=== PATIENT | female | born 1955 | race Caucasian/White ===

== ENCOUNTER 2022-12-31 15:52 | Inpatient (IN) | payer OTHER ==
[2022-12-31] VITALS (8 sets, daily range): BP systolic 94–126; BP diastolic 55–81
[~2022-12-31] VITALS: Ht 162.6 cm; Wt 17.7 kg
[2022-12-31 16:25] LABS: BASO # 0.1 10*3/uL (0.0-0.1); BASO % 0.3 % (0.0-1.0); EOS % 0.1 % (1.0-4.0); LYMPH # 1.2 10*3/uL (1.3-4.4); LYMPH % 7.1 % (27.0-41.0); MEAN CELL VOLUME 88.2 fl (81.0-99.0); MEAN CORPUSCULAR HGB 30.8 pg (27.0-31.0); MEAN CORPUSCULAR HGB CONC 34.9 g/dl (33.0-37.0); MEAN PLATELET VOLUME 8.2 fl (9.6-12.3); MONO # 1.2 10*3/uL (0.1-1.0); MONO % 7.1 % (3.0-9.0); NEUT # 14.2 10*3/uL (2.3-7.9); NEUT % 84.7 % (47.0-73.0); PLATELET COUNT AUTOMATED 454 10*3/uL (130-400); RED BLOOD COUNT 5.33 10*6/uL (4.10-5.10); WHITE BLOOD COUNT 16.7 10*3/uL (4.8-10.8)
[2022-12-31 16:37] LABS: ACT PARTIAL THROMBO TIME 27.8 SECONDS (20.0-32.1); INTERNATIONAL NORM RATIO 1.1 (2.0-3.5)
[2022-12-31] MEDS ORDERED: PAXIL10 MG PO (16:47)
[2022-12-31] MEDS ORDERED: SYMB160 INH (16:47)
[2022-12-31 16:55] LABS: ALKALINE PHOSPHATASE 70 U/L (46-116); BUN 8 mg/dl (9-23); CHLORIDE 82 mmol/L (98-107); LIPASE 32 U/L (12-53); POTASSIUM 3.2 mmol/L (3.4-5.1); SGPT/ALT 14 U/L (10-49); TOTAL PROTEIN 6.3 gm/dL (6.0-8.0)
[2022-12-31 17:15] LABS: BILIRUBIN Negative (Negative); BLOOD Negative (Negative); CLARITY Clear (Clear); COLOR Dark Yellow (Yellow); GLUCOSE Negative (Negative); KETONE Trace (Negative); LEUKO ESTERASE Negative (Negative); NITRITE Negative (Negative)
[2022-12-31 17:32] LABS: RBC 0-2 rbc/hpf (0-2)
[2022-12-31 17:40] LABS: URINE AMPHETAMINES Negative (1000ng/ml); URINE BARBITURATES Negative (200ng/ml); URINE BENZODIAZEPINES Negative (200ng/ml); URINE CANNABINOIDS (THC) Negative (50ng/ml); URINE COCAINE Negative (300ng/ml); URINE METHADONE Negative (300ng/ml); URINE OPIATES Negative (300ng/ml); URINE PHENCYCLIDINE Negative (25ng/ml)
[2023-01-01 02:12] VITALS: BP 120/81
[2023-01-01 02:30] VITALS: BP 120/68
[2023-01-01] MEDS ORDERED: PROVENTIL HFA6.7 GM INH (03:14)
[2023-01-01 06:34] LABS: ALKALINE PHOSPHATASE 55 U/L (46-116); CHLORIDE 95 mmol/L (98-107); CHOLESTEROL 94 mg/dL (<200); FREE T4 0.88 ng/dl (0.89-1.76); LDL CHOLESTEROL 45 mg/dL (9-159); POTASSIUM 2.8 mmol/L (3.4-5.1); SGPT/ALT 12 U/L (10-49); TOTAL PROTEIN 5.2 gm/dL (6.0-8.0); TRIGLYCERIDES 71 mg/dl (<150); VITAMIN D, 25-HYDROXY 49.1 ng/mL (30-100)
[2023-01-01 06:35] LABS: BUN < 5 mg/dl (9-23)
[2023-01-01 07:07] LABS: BASO % 0.1 % (0.0-1.0); EOS # 0.1 10*3/uL (0.0-0.4); EOS % 0.4 % (1.0-4.0); HEMATOCRIT 43.1 % (37.0-47.0); LYMPH % 7.2 % (27.0-41.0); MEAN CORPUSCULAR HGB 30.7 pg (27.0-31.0); MEAN CORPUSCULAR HGB CONC 32.9 g/dl (33.0-37.0); MEAN PLATELET VOLUME 8.8 fl (9.6-12.3); NEUT # 11.4 10*3/uL (2.3-7.9); NEUT % 84.7 % (47.0-73.0); PLATELET COUNT AUTOMATED 391 10*3/uL (130-400); RED BLOOD COUNT 4.63 10*6/uL (4.10-5.10); RED CELL DISTRI WIDTH 12.5 % (0-14.5); WHITE BLOOD COUNT 13.5 10*3/uL (4.8-10.8)
[2023-01-01 07:08] LABS: MEAN CELL VOLUME 93.1 fl (81.0-99.0)
[2023-01-01 08:00] VITALS: BP 108/71
[2023-01-01 12:00] VITALS: BP 100/56
[2023-01-01 13:54] LABS: CHLORIDE 99 mmol/L (98-107); POTASSIUM 3.7 mmol/L (3.4-5.1)
[2023-01-01 13:55] LABS: BUN < 5 mg/dl (9-23)
[2023-01-01 16:00] VITALS: BP 104/62
[2023-01-01 20:00] VITALS: BP 108/55
[2023-01-01 21:49] LABS: CHLORIDE 105 mmol/L (98-107)
[2023-01-01 21:55] LABS: BUN < 5 mg/dl (9-23); POTASSIUM 5.9 mmol/L (3.4-5.1)
[2023-01-02] VITALS (11 sets, daily range): BP systolic 111–158; BP diastolic 66–100
[2023-01-02 02:05] LABS: CHLORIDE 107 mmol/L (98-107)
[2023-01-02 02:06] LABS: BUN < 5 mg/dl (9-23); POTASSIUM 4.9 mmol/L (3.4-5.1)
[2023-01-02 06:09] LABS: CHLORIDE 110 mmol/L (98-107); POTASSIUM 4.7 mmol/L (3.4-5.1)
[2023-01-02 06:12] LABS: BUN < 5 mg/dl (9-23)
[2023-01-02 06:39] LABS: BASO # 0.1 10*3/uL (0.0-0.1); BASO % 0.4 % (0.0-1.0); EOS # 0.1 10*3/uL (0.0-0.4); EOS % 0.5 % (1.0-4.0); LYMPH % 8.2 % (27.0-41.0); MEAN CELL VOLUME 94.4 fl (81.0-99.0); MEAN CORPUSCULAR HGB 30.3 pg (27.0-31.0); MEAN CORPUSCULAR HGB CONC 32.1 g/dl (33.0-37.0); MEAN PLATELET VOLUME 8.6 fl (9.6-12.3); MONO # 0.9 10*3/uL (0.1-1.0); MONO % 7.2 % (3.0-9.0); NEUT # 9.9 10*3/uL (2.3-7.9); NEUT % 83.1 % (47.0-73.0); PLATELET COUNT AUTOMATED 415 10*3/uL (130-400); RED BLOOD COUNT 4.45 10*6/uL (4.10-5.10); RED CELL DISTRI WIDTH 12.6 % (0-14.5); WHITE BLOOD COUNT 11.9 10*3/uL (4.8-10.8)
[2023-01-02 15:47] LABS: CHLORIDE 106 mmol/L (98-107); POTASSIUM 4.2 mmol/L (3.4-5.1)
[2023-01-02 15:50] LABS: BUN < 5 mg/dl (9-23)
[2023-01-02 22:03] LABS: CHLORIDE 104 mmol/L (98-107); POTASSIUM 3.9 mmol/L (3.4-5.1)
[2023-01-02 22:06] LABS: BUN < 5 mg/dl (9-23)
[2023-01-03] VITALS: BP 137/83
[2023-01-03 04:00] VITALS: BP 151/88
[2023-01-03 05:47] LABS: CHLORIDE 101 mmol/L (98-107); POTASSIUM 3.9 mmol/L (3.4-5.1)
[2023-01-03 05:51] LABS: BUN < 5 mg/dl (9-23)
[2023-01-03 06:22] LABS: BASO # 0.1 10*3/uL (0.0-0.1); BASO % 0.9 % (0.0-1.0); EOS # 0.1 10*3/uL (0.0-0.4); EOS % 1.2 % (1.0-4.0); HEMATOCRIT 43.4 % (37.0-47.0); LYMPH # 1.2 10*3/uL (1.3-4.4); LYMPH % 11.4 % (27.0-41.0); MEAN CELL VOLUME 94.8 fl (81.0-99.0); MEAN CORPUSCULAR HGB 30.1 pg (27.0-31.0); MEAN CORPUSCULAR HGB CONC 31.8 g/dl (33.0-37.0); MEAN PLATELET VOLUME 8.6 fl (9.6-12.3); MONO # 0.7 10*3/uL (0.1-1.0); MONO % 7.3 % (3.0-9.0); NEUT % 78.7 % (47.0-73.0); PLATELET COUNT AUTOMATED 420 10*3/uL (130-400); RED BLOOD COUNT 4.58 10*6/uL (4.10-5.10); RED CELL DISTRI WIDTH 12.8 % (0-14.5); WHITE BLOOD COUNT 10.1 10*3/uL (4.8-10.8)
[2023-01-03 08:00] VITALS: BP 129/86
[2023-01-03 12:00] VITALS: BP 144/81
[2023-01-03 14:06] LABS: CHLORIDE 101 mmol/L (98-107); POTASSIUM 4.3 mmol/L (3.4-5.1)
[2023-01-03 14:10] LABS: BUN < 5 mg/dl (9-23)
[2023-01-03 16:00] VITALS: BP 124/82
[2023-01-03 20:00] VITALS: BP 146/87
[2023-01-03 21:51] LABS: CHLORIDE 102 mmol/L (98-107)
[2023-01-03 21:52] LABS: BUN < 5 mg/dl (9-23)
[2023-01-04] VITALS (7 sets, daily range): BP systolic 139–165; BP diastolic 82–97
[2023-01-04 06:16] LABS: BASO # 0.1 10*3/uL (0.0-0.1); BASO % 0.8 % (0.0-1.0); EOS # 0.1 10*3/uL (0.0-0.4); EOS % 0.9 % (1.0-4.0); HEMATOCRIT 45.7 % (37.0-47.0); LYMPH % 9.4 % (27.0-41.0); MEAN CELL VOLUME 92.7 fl (81.0-99.0); MEAN CORPUSCULAR HGB CONC 32.4 g/dl (33.0-37.0); MEAN PLATELET VOLUME 8.2 fl (9.6-12.3); MONO # 0.7 10*3/uL (0.1-1.0); MONO % 6.5 % (3.0-9.0); NEUT # 8.7 10*3/uL (2.3-7.9); PLATELET COUNT AUTOMATED 420 10*3/uL (130-400); RED BLOOD COUNT 4.93 10*6/uL (4.10-5.10); RED CELL DISTRI WIDTH 12.5 % (0-14.5); WHITE BLOOD COUNT 10.6 10*3/uL (4.8-10.8)
[2023-01-04 06:41] LABS: CHLORIDE 104 mmol/L (98-107); POTASSIUM 3.6 mmol/L (3.4-5.1)
[2023-01-04 06:46] LABS: BUN < 5 mg/dl (9-23)
[2023-01-04 14:07] LABS: CHLORIDE 103 mmol/L (98-107); POTASSIUM 3.5 mmol/L (3.4-5.1)
[2023-01-04 14:09] LABS: BUN < 5 mg/dl (9-23)
[2023-01-04 22:36] LABS: CHLORIDE 105 mmol/L (98-107); POTASSIUM 4.3 mmol/L (3.4-5.1)
[2023-01-04 22:44] LABS: BUN < 5 mg/dl (9-23)
[2023-01-05] VITALS: BP 131/70
[2023-01-05 04:00] VITALS: BP 132/81
[2023-01-05 05:29] LABS: CHLORIDE 104 mmol/L (98-107); POTASSIUM 4.4 mmol/L (3.4-5.1)
[2023-01-05 05:39] LABS: BUN < 5 mg/dl (9-23)
[2023-01-05 06:17] LABS: BASO # 0.1 10*3/uL (0.0-0.1); BASO % 0.7 % (0.0-1.0); EOS # 0.1 10*3/uL (0.0-0.4); EOS % 0.7 % (1.0-4.0); HEMATOCRIT 47.9 % (37.0-47.0); LYMPH % 8.9 % (27.0-41.0); MEAN CELL VOLUME 95.6 fl (81.0-99.0); MEAN CORPUSCULAR HGB 30.5 pg (27.0-31.0); MEAN CORPUSCULAR HGB CONC 31.9 g/dl (33.0-37.0); MEAN PLATELET VOLUME 8.6 fl (9.6-12.3); MONO # 0.9 10*3/uL (0.1-1.0); MONO % 7.5 % (3.0-9.0); NEUT # 9.4 10*3/uL (2.3-7.9); NEUT % 81.6 % (47.0-73.0); PLATELET COUNT AUTOMATED 425 10*3/uL (130-400); RED BLOOD COUNT 5.01 10*6/uL (4.10-5.10); RED CELL DISTRI WIDTH 12.8 % (0-14.5); WHITE BLOOD COUNT 11.5 10*3/uL (4.8-10.8)
[2023-01-05 07:50] VITALS: BP 143/72
[2023-01-05 12:00] VITALS: BP 119/67
[2023-01-05 14:17] LABS: CHLORIDE 104 mmol/L (98-107); POTASSIUM 3.8 mmol/L (3.4-5.1)
[2023-01-05 14:29] LABS: BUN < 5 mg/dl (9-23)
[2023-01-05 16:00] VITALS: BP 108/56
[2023-01-05 20:00] VITALS: BP 117/64
[2023-01-05 22:34] LABS: CHLORIDE 110 mmol/L (98-107)
[2023-01-05 22:35] LABS: BUN < 5 mg/dl (9-23)
[2023-01-06] VITALS: BP 112/62
[2023-01-06 04:00] VITALS: BP 131/69
[2023-01-06 06:52] LABS: BUN 5 mg/dl (9-23); CHLORIDE 109 mmol/L (98-107); POTASSIUM 5.3 mmol/L (3.4-5.1)
[2023-01-06 08:42] LABS: BASO # 0.1 10*3/uL (0.0-0.1); BASO % 0.8 % (0.0-1.0); EOS # 0.1 10*3/uL (0.0-0.4); EOS % 1.2 % (1.0-4.0); HEMATOCRIT 45.1 % (37.0-47.0); LYMPH # 1.2 10*3/uL (1.3-4.4); LYMPH % 12.1 % (27.0-41.0); MEAN CELL VOLUME 97.2 fl (81.0-99.0); MEAN CORPUSCULAR HGB 30.2 pg (27.0-31.0); MEAN PLATELET VOLUME 8.7 fl (9.6-12.3); MONO # 0.7 10*3/uL (0.1-1.0); MONO % 7.3 % (3.0-9.0); NEUT # 7.8 10*3/uL (2.3-7.9); NEUT % 78.1 % (47.0-73.0); PLATELET COUNT AUTOMATED 428 10*3/uL (130-400); RED BLOOD COUNT 4.64 10*6/uL (4.10-5.10); RED CELL DISTRI WIDTH 12.8 % (0-14.5); WHITE BLOOD COUNT 9.9 10*3/uL (4.8-10.8)
[2023-01-06 12:00] VITALS: BP 121/65
[2023-01-06 14:39] LABS: CHLORIDE 110 mmol/L (98-107)
[2023-01-06 14:40] LABS: BUN < 5 mg/dl (9-23); POTASSIUM 3.6 mmol/L (3.4-5.1)
[2023-01-06 16:00] VITALS: BP 129/71
[2023-01-06 20:00] VITALS: BP 128/67
[2023-01-06 22:25] LABS: CHLORIDE 106 mmol/L (98-107)
[2023-01-06 22:26] LABS: BUN < 5 mg/dl (9-23)
[2023-01-07] VITALS: BP 135/66
[2023-01-07 04:00] VITALS: BP 150/80
[2023-01-07 06:19] LABS: BASO # 0.1 10*3/uL (0.0-0.1); BASO % 0.8 % (0.0-1.0); EOS # 0.1 10*3/uL (0.0-0.4); LYMPH # 1.4 10*3/uL (1.3-4.4); LYMPH % 12.2 % (27.0-41.0); MEAN CELL VOLUME 96.8 fl (81.0-99.0); MEAN CORPUSCULAR HGB CONC 30.9 g/dl (33.0-37.0); MEAN PLATELET VOLUME 8.9 fl (9.6-12.3); MONO # 0.8 10*3/uL (0.1-1.0); MONO % 6.7 % (3.0-9.0); NEUT # 9.2 10*3/uL (2.3-7.9); PLATELET COUNT AUTOMATED 381 10*3/uL (130-400); RED BLOOD COUNT 4.44 10*6/uL (4.10-5.10); RED CELL DISTRI WIDTH 12.9 % (0-14.5); WHITE BLOOD COUNT 11.7 10*3/uL (4.8-10.8)
[2023-01-07 07:01] LABS: ALKALINE PHOSPHATASE 51 U/L (46-116); CHLORIDE 108 mmol/L (98-107); SGPT/ALT 18 U/L (10-49); TOTAL PROTEIN 5.6 gm/dL (6.0-8.0)
[2023-01-07 07:10] LABS: BUN < 5 mg/dl (9-23)
[2023-01-07 07:12] LABS: POTASSIUM 6.2 mmol/L (3.4-5.1)
[2023-01-07 08:00] VITALS: BP 152/92
[2023-01-07 12:00] VITALS: BP 130/70
[2023-01-07 13:58] LABS: CHLORIDE 104 mmol/L (98-107)
[2023-01-07 14:35] LABS: BUN < 5 mg/dl (9-23); POTASSIUM 3.6 mmol/L (3.4-5.1)
[2023-01-07 16:00] VITALS: BP 149/81
[2023-01-07 20:00] VITALS: BP 155/69
[2023-01-07 22:16] LABS: CHLORIDE 101 mmol/L (98-107); POTASSIUM 3.5 mmol/L (3.4-5.1)
[2023-01-07 22:17] LABS: BUN < 5 mg/dl (9-23)
[2023-01-08] VITALS: BP 162/80
[2023-01-08 04:00] VITALS: BP 133/60
[2023-01-08 08:00] VITALS: BP 143/73
[2023-01-08 11:55] LABS: BASO # 0.1 10*3/uL (0.0-0.1); BASO % 0.7 % (0.0-1.0); EOS # 0.1 10*3/uL (0.0-0.4); EOS % 1.3 % (1.0-4.0); HEMATOCRIT 42.7 % (37.0-47.0); LYMPH # 1.3 10*3/uL (1.3-4.4); LYMPH % 12.9 % (27.0-41.0); MEAN CORPUSCULAR HGB 30.3 pg (27.0-31.0); MEAN CORPUSCULAR HGB CONC 32.8 g/dl (33.0-37.0); MONO # 0.7 10*3/uL (0.1-1.0); MONO % 6.7 % (3.0-9.0); NEUT # 7.8 10*3/uL (2.3-7.9); PLATELET COUNT AUTOMATED 364 10*3/uL (130-400); RED BLOOD COUNT 4.62 10*6/uL (4.10-5.10); RED CELL DISTRI WIDTH 12.8 % (0-14.5)
[2023-01-08 12:00] VITALS: BP 149/73
[2023-01-08 12:00] LABS: BUN < 5 mg/dl (9-23); CHLORIDE 99 mmol/L (98-107); POTASSIUM 3.2 mmol/L (3.4-5.1)
[2023-01-08 12:15] LABS: MEAN CELL VOLUME 92.4 fl (81.0-99.0)
[2023-01-08 15:53] VITALS: BP 122/69
[2023-01-08 20:00] VITALS: BP 125/80
[2023-01-08 22:09] LABS: BUN < 5 mg/dl (9-23); CHLORIDE 102 mmol/L (98-107); POTASSIUM 3.7 mmol/L (3.4-5.1)
[2023-01-09] VITALS: BP 135/75
[2023-01-09 08:00] VITALS: BP 141/94
[2023-01-09 12:00] VITALS: BP 148/83
[2023-01-09 16:00] VITALS: BP 147/82
[2023-01-09 16:18] LABS: ALKALINE PHOSPHATASE 59 U/L (46-116); CHLORIDE 99 mmol/L (98-107); POTASSIUM 3.3 mmol/L (3.4-5.1); SGPT/ALT 25 U/L (10-49); TOTAL PROTEIN 5.6 gm/dL (6.0-8.0)
[2023-01-09 16:27] LABS: BUN < 5 mg/dl (9-23)
[2023-01-09 20:00] VITALS: BP 144/76
[2023-01-10] VITALS: BP 143/92
[2023-01-10 06:10] LABS: ALKALINE PHOSPHATASE 60 U/L (46-116); CHLORIDE 102 mmol/L (98-107); POTASSIUM 2.5 mmol/L (3.4-5.1); SGPT/ALT 25 U/L (10-49); TOTAL PROTEIN 5.5 gm/dL (6.0-8.0)
[2023-01-10 06:19] LABS: BUN < 5 mg/dl (9-23)
[2023-01-10 06:43] LABS: BASO # 0.1 10*3/uL (0.0-0.1); BASO % 0.9 % (0.0-1.0); EOS # 0.2 10*3/uL (0.0-0.4); HEMATOCRIT 38.8 % (37.0-47.0); LYMPH # 1.1 10*3/uL (1.3-4.4); LYMPH % 11.8 % (27.0-41.0); MEAN CORPUSCULAR HGB 29.9 pg (27.0-31.0); MEAN CORPUSCULAR HGB CONC 33.2 g/dl (33.0-37.0); MEAN PLATELET VOLUME 9.5 fl (9.6-12.3); MONO # 0.7 10*3/uL (0.1-1.0); MONO % 7.6 % (3.0-9.0); NEUT # 7.2 10*3/uL (2.3-7.9); NEUT % 77.1 % (47.0-73.0); PLATELET COUNT AUTOMATED 421 10*3/uL (130-400); RED BLOOD COUNT 4.31 10*6/uL (4.10-5.10); RED CELL DISTRI WIDTH 12.6 % (0-14.5); WHITE BLOOD COUNT 9.3 10*3/uL (4.8-10.8)
[2023-01-10 08:00] VITALS: BP 150/80
[2023-01-10 12:00] VITALS: BP 150/84
[2023-01-10 16:00] VITALS: BP 150/82
[2023-01-10 16:36] VITALS: BP 150/82
[2023-01-10 16:58] LABS: CHLORIDE 103 mmol/L (98-107)
[2023-01-10 17:00] LABS: BUN < 5 mg/dl (9-23); POTASSIUM 4.1 mmol/L (3.4-5.1)
[2023-01-10 20:00] VITALS: BP 133/82
[2023-01-11 04:55] LABS: ALKALINE PHOSPHATASE 63 U/L (46-116); BUN 6 mg/dl (9-23); CHLORIDE 100 mmol/L (98-107); POTASSIUM 3.5 mmol/L (3.4-5.1); SGPT/ALT 22 U/L (10-49); TOTAL PROTEIN 5.6 gm/dL (6.0-8.0)
[2023-01-11 06:29] LABS: BASO # 0.1 10*3/uL (0.0-0.1); BASO % 0.9 % (0.0-1.0); EOS # 0.4 10*3/uL (0.0-0.4); EOS % 4.2 % (1.0-4.0); HEMATOCRIT 38.4 % (37.0-47.0); LYMPH # 1.1 10*3/uL (1.3-4.4); LYMPH % 11.3 % (27.0-41.0); MEAN CELL VOLUME 91.2 fl (81.0-99.0); MEAN CORPUSCULAR HGB 30.6 pg (27.0-31.0); MEAN CORPUSCULAR HGB CONC 33.6 g/dl (33.0-37.0); MEAN PLATELET VOLUME 9.5 fl (9.6-12.3); MONO # 0.8 10*3/uL (0.1-1.0); MONO % 7.4 % (3.0-9.0); NEUT # 7.7 10*3/uL (2.3-7.9); NEUT % 75.8 % (47.0-73.0); PLATELET COUNT AUTOMATED 422 10*3/uL (130-400); RED BLOOD COUNT 4.21 10*6/uL (4.10-5.10); RED CELL DISTRI WIDTH 12.8 % (0-14.5); WHITE BLOOD COUNT 10.1 10*3/uL (4.8-10.8)
[2023-01-11 08:00] VITALS: BP 128/73
[2023-01-11 16:00] VITALS: BP 121/68
[2023-01-11 20:00] VITALS: BP 122/51
[2023-01-12] VITALS: BP 132/71
[2023-01-12 06:23] LABS: BASO # 0.1 10*3/uL (0.0-0.1); BASO % 0.9 % (0.0-1.0); EOS # 0.5 10*3/uL (0.0-0.4); EOS % 3.7 % (1.0-4.0); LYMPH # 1.2 10*3/uL (1.3-4.4); LYMPH % 9.6 % (27.0-41.0); MEAN CELL VOLUME 90.1 fl (81.0-99.0); MEAN CORPUSCULAR HGB 29.8 pg (27.0-31.0); MEAN CORPUSCULAR HGB CONC 33.1 g/dl (33.0-37.0); MEAN PLATELET VOLUME 9.4 fl (9.6-12.3); MONO # 0.8 10*3/uL (0.1-1.0); NEUT # 9.5 10*3/uL (2.3-7.9); NEUT % 78.6 % (47.0-73.0); PLATELET COUNT AUTOMATED 475 10*3/uL (130-400); RED BLOOD COUNT 4.33 10*6/uL (4.10-5.10); RED CELL DISTRI WIDTH 12.8 % (0-14.5); WHITE BLOOD COUNT 12.1 10*3/uL (4.8-10.8)
[2023-01-12 07:00] LABS: ALKALINE PHOSPHATASE 62 U/L (46-116); CHLORIDE 101 mmol/L (98-107); POTASSIUM 3.2 mmol/L (3.4-5.1); SGPT/ALT 21 U/L (10-49); TOTAL PROTEIN 5.8 gm/dL (6.0-8.0)
[2023-01-12 07:26] LABS: BUN < 5 mg/dl (9-23)
[2023-01-12 08:00] VITALS: BP 150/73
[2023-01-12 12:00] VITALS: BP 149/71
[2023-01-12 16:00] VITALS: BP 149/83
[2023-01-12 20:00] VITALS: BP 150/82
[2023-01-13] VITALS: BP 140/60
[2023-01-13 07:48] LABS: BASO # 0.2 10*3/uL (0.0-0.1); BASO % 1.9 % (0.0-1.0); EOS # 0.7 10*3/uL (0.0-0.4); EOS % 7.7 % (1.0-4.0); LYMPH % 11.4 % (27.0-41.0); MEAN CELL VOLUME 88.3 fl (81.0-99.0); MEAN CORPUSCULAR HGB 29.8 pg (27.0-31.0); MEAN CORPUSCULAR HGB CONC 33.8 g/dl (33.0-37.0); MEAN PLATELET VOLUME 9.3 fl (9.6-12.3); MONO # 0.6 10*3/uL (0.1-1.0); MONO % 7.5 % (3.0-9.0); NEUT # 6.1 10*3/uL (2.3-7.9); NEUT % 71.4 % (47.0-73.0); PLATELET COUNT AUTOMATED 571 10*3/uL (130-400); RED BLOOD COUNT 4.53 10*6/uL (4.10-5.10); RED CELL DISTRI WIDTH 12.8 % (0-14.5); WHITE BLOOD COUNT 8.5 10*3/uL (4.8-10.8)
[2023-01-13 07:52] LABS: BUN 6 mg/dl (9-23); CHLORIDE 100 mmol/L (98-107); POTASSIUM 2.5 mmol/L (3.4-5.1)
[2023-01-13 08:00] VITALS: BP 147/86
[2023-01-13 12:00] VITALS: BP 130/76
[2023-01-13 16:00] VITALS: BP 150/74
[2023-01-13 20:00] VITALS: BP 142/80
[2023-01-14] VITALS: BP 131/84
[2023-01-14 07:50] LABS: BASO # 0.2 10*3/uL (0.0-0.1); BASO % 1.6 % (0.0-1.0); EOS # 0.3 10*3/uL (0.0-0.4); HEMATOCRIT 41.5 % (37.0-47.0); LYMPH # 1.1 10*3/uL (1.3-4.4); LYMPH % 11.3 % (27.0-41.0); MEAN CELL VOLUME 88.7 fl (81.0-99.0); MEAN CORPUSCULAR HGB 29.9 pg (27.0-31.0); MEAN CORPUSCULAR HGB CONC 33.7 g/dl (33.0-37.0); MEAN PLATELET VOLUME 8.7 fl (9.6-12.3); MONO # 0.7 10*3/uL (0.1-1.0); MONO % 7.2 % (3.0-9.0); NEUT # 7.5 10*3/uL (2.3-7.9); NEUT % 76.5 % (47.0-73.0); PLATELET COUNT AUTOMATED 621 10*3/uL (130-400); RED BLOOD COUNT 4.68 10*6/uL (4.10-5.10); RED CELL DISTRI WIDTH 12.9 % (0-14.5); WHITE BLOOD COUNT 9.8 10*3/uL (4.8-10.8)
[2023-01-14 08:00] VITALS: BP 147/82
[2023-01-14 08:09] LABS: CHLORIDE 101 mmol/L (98-107); POTASSIUM 3.2 mmol/L (3.4-5.1)
[2023-01-14 08:17] LABS: BUN < 5 mg/dl (9-23)
[2023-01-14 12:00] VITALS: BP 120/80
[2023-01-14 16:00] VITALS: BP 150/90
[2023-01-14 20:00] VITALS: BP 149/93
[2023-01-14] MEDS ORDERED: PIPERACIL-TAZO4.5 GM IV (21:49)
[2023-01-15] VITALS: BP 153/77
[2023-01-15 06:20] LABS: BASO # 0.1 10*3/uL (0.0-0.1); BASO % 1.2 % (0.0-1.0); EOS # 0.3 10*3/uL (0.0-0.4); EOS % 3.3 % (1.0-4.0); HEMATOCRIT 40.6 % (37.0-47.0); LYMPH # 1.2 10*3/uL (1.3-4.4); LYMPH % 12.6 % (27.0-41.0); MEAN CELL VOLUME 89.4 fl (81.0-99.0); MEAN CORPUSCULAR HGB CONC 33.5 g/dl (33.0-37.0); MEAN PLATELET VOLUME 9.1 fl (9.6-12.3); MONO # 0.8 10*3/uL (0.1-1.0); MONO % 8.6 % (3.0-9.0); NEUT % 73.9 % (47.0-73.0); PLATELET COUNT AUTOMATED 660 10*3/uL (130-400); RED BLOOD COUNT 4.54 10*6/uL (4.10-5.10); WHITE BLOOD COUNT 9.4 10*3/uL (4.8-10.8)
[2023-01-15 07:17] LABS: ALKALINE PHOSPHATASE 66 U/L (46-116); CHLORIDE 104 mmol/L (98-107); POTASSIUM 3.6 mmol/L (3.4-5.1); SGPT/ALT 23 U/L (10-49); TOTAL PROTEIN 6.1 gm/dL (6.0-8.0)
[2023-01-15 07:25] LABS: BUN < 5 mg/dl (9-23)
[2023-01-15 08:00] VITALS: BP 155/82
[2023-01-15 12:00] VITALS: BP 153/85
[2023-01-15 16:00] VITALS: BP 152/85
[2023-01-15 20:00] VITALS: BP 137/92
[2023-01-16] VITALS (8 sets, daily range): BP systolic 69–155; BP diastolic 46–82
[2023-01-16 06:06] LABS: BASO # 0.1 10*3/uL (0.0-0.1); BASO % 1.3 % (0.0-1.0); EOS # 0.5 10*3/uL (0.0-0.4); EOS % 4.7 % (1.0-4.0); HEMATOCRIT 36.7 % (37.0-47.0); LYMPH # 1.3 10*3/uL (1.3-4.4); LYMPH % 13.1 % (27.0-41.0); MEAN CELL VOLUME 87.8 fl (81.0-99.0); MEAN CORPUSCULAR HGB 29.9 pg (27.0-31.0); MEAN CORPUSCULAR HGB CONC 34.1 g/dl (33.0-37.0); MONO # 0.8 10*3/uL (0.1-1.0); MONO % 8.2 % (3.0-9.0); NEUT % 72.3 % (47.0-73.0); PLATELET COUNT AUTOMATED 633 10*3/uL (130-400); RED BLOOD COUNT 4.18 10*6/uL (4.10-5.10); RED CELL DISTRI WIDTH 12.9 % (0-14.5); WHITE BLOOD COUNT 9.7 10*3/uL (4.8-10.8)
[2023-01-16 06:24] LABS: BUN 7 mg/dl (9-23); CHLORIDE 99 mmol/L (98-107); POTASSIUM 3.1 mmol/L (3.4-5.1)
[2023-01-17] VITALS: BP 153/86
[2023-01-17 08:00] VITALS: BP 132/80
[2023-01-17 12:00] VITALS: BP 146/98
[2023-01-17 16:00] VITALS: BP 131/75
[2023-01-17 20:00] VITALS: BP 148/81
[2023-01-18] VITALS: BP 142/85
[2023-01-18 07:24] LABS: BASO # 0.1 10*3/uL (0.0-0.1); BASO % 0.9 % (0.0-1.0); EOS # 0.3 10*3/uL (0.0-0.4); EOS % 2.5 % (1.0-4.0); HEMATOCRIT 36.5 % (37.0-47.0); LYMPH # 1.4 10*3/uL (1.3-4.4); LYMPH % 12.5 % (27.0-41.0); MEAN CELL VOLUME 87.5 fl (81.0-99.0); MEAN CORPUSCULAR HGB 29.7 pg (27.0-31.0); MONO # 0.8 10*3/uL (0.1-1.0); MONO % 6.7 % (3.0-9.0); NEUT # 8.8 10*3/uL (2.3-7.9); PLATELET COUNT AUTOMATED 625 10*3/uL (130-400); RED BLOOD COUNT 4.17 10*6/uL (4.10-5.10); RED CELL DISTRI WIDTH 12.7 % (0-14.5); WHITE BLOOD COUNT 11.4 10*3/uL (4.8-10.8)
[2023-01-18 07:37] LABS: BUN 6 mg/dl (9-23); CHLORIDE 100 mmol/L (98-107); POTASSIUM 2.8 mmol/L (3.4-5.1)
[2023-01-18 08:00] VITALS: BP 120/67
[2023-01-18 12:00] VITALS: BP 119/50
[2023-01-18 16:00] VITALS: BP 129/68
[2023-01-18 20:00] VITALS: BP 147/80
[2023-01-19] VITALS: BP 151/84
[2023-01-19 07:22] LABS: BASO # 0.1 10*3/uL (0.0-0.1); EOS # 0.2 10*3/uL (0.0-0.4); EOS % 1.5 % (1.0-4.0); LYMPH # 1.3 10*3/uL (1.3-4.4); LYMPH % 13.1 % (27.0-41.0); MEAN CELL VOLUME 87.6 fl (81.0-99.0); MEAN CORPUSCULAR HGB 29.4 pg (27.0-31.0); MEAN CORPUSCULAR HGB CONC 33.6 g/dl (33.0-37.0); MONO # 0.7 10*3/uL (0.1-1.0); MONO % 7.2 % (3.0-9.0); NEUT # 7.6 10*3/uL (2.3-7.9); NEUT % 76.7 % (47.0-73.0); PLATELET COUNT AUTOMATED 611 10*3/uL (130-400); RED BLOOD COUNT 4.11 10*6/uL (4.10-5.10); RED CELL DISTRI WIDTH 12.8 % (0-14.5); WHITE BLOOD COUNT 9.9 10*3/uL (4.8-10.8)
[2023-01-19 07:50] LABS: BUN 5 mg/dl (9-23); CHLORIDE 101 mmol/L (98-107); POTASSIUM 3.4 mmol/L (3.4-5.1)
[2023-01-19 08:00] VITALS: BP 135/76
[2023-01-19 12:00] VITALS: BP 134/79
[2023-01-19 16:00] VITALS: BP 143/81
[2023-01-19 20:00] VITALS: BP 145/73
[2023-01-20] VITALS: BP 126/80
[2023-01-20 06:02] LABS: BASO # 0.1 10*3/uL (0.0-0.1); BASO % 0.7 % (0.0-1.0); EOS # 0.1 10*3/uL (0.0-0.4); EOS % 1.2 % (1.0-4.0); HEMATOCRIT 34.7 % (37.0-47.0); LYMPH # 1.4 10*3/uL (1.3-4.4); LYMPH % 12.7 % (27.0-41.0); MEAN CELL VOLUME 86.8 fl (81.0-99.0); MEAN CORPUSCULAR HGB 29.3 pg (27.0-31.0); MEAN CORPUSCULAR HGB CONC 33.7 g/dl (33.0-37.0); MEAN PLATELET VOLUME 8.9 fl (9.6-12.3); MONO # 0.8 10*3/uL (0.1-1.0); MONO % 6.8 % (3.0-9.0); NEUT # 8.8 10*3/uL (2.3-7.9); NEUT % 78.2 % (47.0-73.0); PLATELET COUNT AUTOMATED 575 10*3/uL (130-400); RED CELL DISTRI WIDTH 12.7 % (0-14.5); WHITE BLOOD COUNT 11.2 10*3/uL (4.8-10.8)
[2023-01-20 06:07] LABS: ALKALINE PHOSPHATASE 61 U/L (46-116); BUN 6 mg/dl (9-23); CHLORIDE 97 mmol/L (98-107); POTASSIUM 3.4 mmol/L (3.4-5.1); SGPT/ALT 22 U/L (10-49)
[2023-01-20 08:00] VITALS: BP 105/62
[2023-01-20 12:00] VITALS: BP 131/86
[2023-01-20 16:00] VITALS: BP 151/92
[2023-01-20 20:00] VITALS: BP 145/80
[2023-01-21] VITALS: BP 145/82
[2023-01-21 07:10] LABS: BASO # 0.1 10*3/uL (0.0-0.1); BASO % 0.7 % (0.0-1.0); EOS # 0.1 10*3/uL (0.0-0.4); EOS % 0.7 % (1.0-4.0); HEMATOCRIT 35.4 % (37.0-47.0); LYMPH # 1.6 10*3/uL (1.3-4.4); LYMPH % 12.7 % (27.0-41.0); MEAN CELL VOLUME 87.6 fl (81.0-99.0); MEAN CORPUSCULAR HGB CONC 33.1 g/dl (33.0-37.0); MEAN PLATELET VOLUME 8.7 fl (9.6-12.3); MONO # 0.9 10*3/uL (0.1-1.0); MONO % 7.2 % (3.0-9.0); NEUT # 9.6 10*3/uL (2.3-7.9); NEUT % 78.3 % (47.0-73.0); PLATELET COUNT AUTOMATED 540 10*3/uL (130-400); RED BLOOD COUNT 4.04 10*6/uL (4.10-5.10); RED CELL DISTRI WIDTH 12.9 % (0-14.5); WHITE BLOOD COUNT 12.2 10*3/uL (4.8-10.8)
[2023-01-21 07:46] LABS: ALKALINE PHOSPHATASE 64 U/L (46-116); CHLORIDE 98 mmol/L (98-107); POTASSIUM 4.1 mmol/L (3.4-5.1); SGPT/ALT 19 U/L (10-49)
[2023-01-21 07:47] LABS: BUN < 5 mg/dl (9-23)
[2023-01-21 08:00] VITALS: BP 142/80
[2023-01-21 12:00] VITALS: BP 129/79
[2023-01-21 16:00] VITALS: BP 140/66
[2023-01-21 20:00] VITALS: BP 148/88
[2023-01-22] VITALS: BP 142/74
[2023-01-22 05:47] LABS: CHLORIDE 96 mmol/L (98-107); POTASSIUM 3.2 mmol/L (3.4-5.1)
[2023-01-22 05:56] LABS: BUN < 5 mg/dl (9-23)
[2023-01-22 08:00] VITALS: BP 135/72
[2023-01-22 12:00] VITALS: BP 127/78
[2023-01-22 14:39] VITALS: BP 129/65
[2023-01-22 16:00] VITALS: BP 118/59
[2023-01-22 20:00] VITALS: BP 137/72
[2023-01-23] VITALS: BP 144/76
[2023-01-23 08:00] VITALS: BP 121/98
[2023-01-23 12:00] VITALS: BP 136/74
[2023-01-23 16:00] VITALS: BP 138/62
[2023-01-23 20:00] VITALS: BP 131/88
[2023-01-24] VITALS: BP 138/77
[2023-01-24 06:46] LABS: BASO # 0.1 10*3/uL (0.0-0.1); BASO % 0.7 % (0.0-1.0); EOS # 0.4 10*3/uL (0.0-0.4); EOS % 3.9 % (1.0-4.0); HEMATOCRIT 32.4 % (37.0-47.0); LYMPH # 1.2 10*3/uL (1.3-4.4); LYMPH % 11.7 % (27.0-41.0); MEAN CELL VOLUME 87.3 fl (81.0-99.0); MEAN CORPUSCULAR HGB 29.4 pg (27.0-31.0); MEAN CORPUSCULAR HGB CONC 33.6 g/dl (33.0-37.0); MEAN PLATELET VOLUME 8.8 fl (9.6-12.3); MONO # 0.8 10*3/uL (0.1-1.0); MONO % 8.1 % (3.0-9.0); NEUT # 7.6 10*3/uL (2.3-7.9); NEUT % 75.3 % (47.0-73.0); PLATELET COUNT AUTOMATED 467 10*3/uL (130-400); RED BLOOD COUNT 3.71 10*6/uL (4.10-5.10); RED CELL DISTRI WIDTH 12.8 % (0-14.5); WHITE BLOOD COUNT 10.1 10*3/uL (4.8-10.8)
[2023-01-24 07:06] LABS: BUN 5 mg/dl (9-23); CHLORIDE 95 mmol/L (98-107); POTASSIUM 3.5 mmol/L (3.4-5.1)
[2023-01-24 08:00] VITALS: BP 124/88
[2023-01-24 12:00] VITALS: BP 144/74
[2023-01-24 16:00] VITALS: BP 118/82
[2023-01-24 16:45] VITALS: BP 145/75
[2023-01-24 20:00] VITALS: BP 143/75
[2023-01-25 08:00] VITALS: BP 127/75
[2023-01-25 12:00] VITALS: BP 122/70
[2023-01-25 16:00] VITALS: BP 149/76
[2023-01-25 20:00] VITALS: BP 135/82
[2023-01-26] VITALS: BP 133/81
[2023-01-26 08:00] VITALS: BP 124/74
[2023-01-26] MEDS ORDERED: LOPRESSOR25 MG NG (10:53)
[2023-01-26] MEDS ORDERED: MIRALAX POWDER17 G1 PO (10:53)
[2023-01-26] MEDS ORDERED: NATURE'S BLEND100 M2 PO (10:53)
[2023-01-26] MEDS ORDERED: TAB-A-VITE TA400 MCG PO (10:53)
[2023-01-26] MEDS ORDERED: PERCOCET 5-3251 EACH PO (10:53)
[2023-01-26 12:00] VITALS: BP 134/59
== END 2023-01-26 14:47 | DRG 853 ==
LOC: ED 15:52 → 4E 01-01 00:44 → ICCU 01-01 00:44 → EDHOLD 01-01 00:44 → 4E 01-01 01:40 → ICCU 01-02 09:36 → 4E 01-08 17:56
PROVIDERS: Family Medicine; Internal Medicine; Registered Nurse; Student in an Organized Health Care Education/Training Program; ADMIT Internal Medicine; ATTEND Internal Medicine
PROC: 0JB70ZZ Excision of Back Subcutaneous Tissue and Fascia, Open Approach (ICD-10-PCS; 2023-01-12)
PROC: 0KBN0ZZ Excision of Right Hip Muscle, Open Approach (ICD-10-PCS; principal; 2023-01-16)
DX: A41.9 Sepsis, unspecified organism (principal); E41 Nutritional marasmus; S72.145A Nondisplaced intertrochanteric fracture of left femur, initial encounter for closed fracture; L89.324 Pressure ulcer of left buttock, stage 4; E43 Unspecified severe protein-calorie malnutrition; G93.41 Metabolic encephalopathy; E87.1 Hypo-osmolality and hyponatremia; J96.10 Chronic respiratory failure, unspecified whether with hypoxia or hypercapnia; E87.20 Acidosis, unspecified; I67.82 Cerebral ischemia; M86.18 Other acute osteomyelitis, other site; L89.150 Pressure ulcer of sacral region, unstageable; E83.42 Hypomagnesemia; D64.9 Anemia, unspecified; Z66 Do not resuscitate; F32.9 Major depressive disorder, single episode, unspecified; E87.6 Hypokalemia; R73.9 Hyperglycemia, unspecified; D75.839 Thrombocytosis, unspecified; F10.20 Alcohol dependence, uncomplicated; F17.200 Nicotine dependence, unspecified, uncomplicated; R65.20 Severe sepsis without septic shock; L89.310 Pressure ulcer of right buttock, unstageable; S90.31XA Contusion of right foot, initial encounter; S90.32XA Contusion of left foot, initial encounter; S51.812A Laceration without foreign body of left forearm, initial encounter; R91.1 Solitary pulmonary nodule; E87.8 Other disorders of electrolyte and fluid balance, not elsewhere classified; E83.39 Other disorders of phosphorus metabolism; E87.5 Hyperkalemia; R74.01 Elevation of levels of liver transaminase levels; Z82.49 Family history of ischemic heart disease and other diseases of the circulatory system; Z80.6 Family history of leukemia; X58.XXXA Exposure to other specified factors, initial encounter; Y93.89 Activity, other specified; Y92.89 Other specified places as the place of occurrence of the external cause; Y99.8 Other external cause status

== ENCOUNTER → 2023-01-28 | Outpatient (CLI) | payer OTHER ==
[~2023-01-28] MED LIST: LOPRESSOR25 MG NG; MIRALAX POWDER17 G1 PO; NATURE'S BLEND100 M2 PO; PAXIL10 MG PO; PERCOCET 5-3251 EACH PO; PIPERACIL-TAZO4.5 GM IV; PROVENTIL HFA6.7 GM INH; SYMB160 INH; TAB-A-VITE TA400 MCG PO
[2023-01-28 20:00] LABS: BILIRUBIN Negative (Negative); BLOOD Negative (Negative); CLARITY Clear (Clear); COLOR Yellow (Yellow); GLUCOSE Negative (Negative); KETONE Negative (Negative); LEUKO ESTERASE 2+ (Negative); NITRITE Negative (Negative); SPECIFIC GRAVITY 1.015 (1.001-1.030)
[2023-01-28 20:12] LABS: BACTERIA 1+; WBC 16-20 wbc/hpf (0-5); YEAST 3+
== END | disposition home or self-care (01) ==
LOC: LAB 19:50
PROVIDERS: ATTEND Internal Medicine
DX: A41.9 Sepsis, unspecified organism (principal)

== ENCOUNTER → 2023-04-26 | Outpatient (CLI) | payer OTHER | END | disposition home or self-care (01) | LOC: WOUNDCARE 00:53 | PROVIDERS: ATTEND Nurse Practitioner Family | DX: L89.150 Pressure ulcer of sacral region, unstageable (principal); J44.0 Chronic obstructive pulmonary disease with (acute) lower respiratory infection; R63.6 Underweight; J96.10 Chronic respiratory failure, unspecified whether with hypoxia or hypercapnia; F32.9 Major depressive disorder, single episode, unspecified; F17.200 Nicotine dependence, unspecified, uncomplicated; F10.10 Alcohol abuse, uncomplicated ==